=== PATIENT | female | born 1945 | race Two or more races ===

== ENCOUNTER 2021-07-10 06:00 | Day surgery (SDC) | payer OTHER ==
[~2021-07-10 06:00] MED LIST: COZAAR100 MG PO; DILTIAZEM ER300 M1 PO; PLAVIX75 MG PO; SYNTHROID125 MCG PO
== END 2021-07-10 11:40 | disposition home or self-care (01) ==
LOC: CIR.AMB 06:00
PROVIDERS: ATTEND Colon & Rectal Surgery
DX: C18.3 Malignant neoplasm of hepatic flexure (principal); Z20.822 Contact with and (suspected) exposure to COVID-19

== ENCOUNTER → 2021-12-18 08:00 | Outpatient (CLI) | payer OTHER | END | disposition home or self-care (01) | LOC: LAB 08:00 → ADM 13:15 → AMB-ENDOS 12-20 13:15 → EDSTATUS 12-20 13:15 | PROVIDERS: ATTEND Colon & Rectal Surgery | DX: U07.1 COVID-19 (principal); C18.3 Malignant neoplasm of hepatic flexure; K92.1 Melena; Z85.038 Personal history of other malignant neoplasm of large intestine ==

== ENCOUNTER 2022-10-07 05:50 | Day surgery (SDC) | payer OTHER | END 2022-10-07 11:15 | disposition home or self-care (01) | LOC: CIR.AMB 05:50 | PROVIDERS: ATTEND Colon & Rectal Surgery | DX: C18.3 Malignant neoplasm of hepatic flexure (principal); K64.0 First degree hemorrhoids; K57.30 Diverticulosis of large intestine without perforation or abscess without bleeding; Z20.822 Contact with and (suspected) exposure to COVID-19; E03.9 Hypothyroidism, unspecified; I10 Essential (primary) hypertension; I49.9 Cardiac arrhythmia, unspecified ==